=== PATIENT | male | born 1960 | race Caucasian/White ===

== ENCOUNTER 2016-10-15 00:35 | Emergency (ER) | payer MEDICARE ==
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
[~2016-10-15 00:35] MED LIST: ALLEGRA PO; ASPIRIN81 M1 PO; BP MED X 2; BP MEDICATION; DIOVAN HCT 160/1 TAB PO; DIOVAN320 MG PO; FISH OIL 1,0001 CAP PO; FLAX SEED OIL1000 M1 PO; FLEXERIL10 MG PO; FLONASE16 GM; FOLIC ACID800 MCG PO; GLUCOPHAGE500 MG PO; IBUPROFEN600 MG PO; LASIX20 MG PO; LORTAB 5/500 TA1 TA1 PO; METFORMIN PO; MULTI-VITAMIN1 EAC1 PO; NORVASC PO; POTASSIUM99 M1 PO; SYMBICORT INH; TREXALL10 MG; TYLOX 5/500 CAP1 CAP PO; VALTURNA 300-321 TAB PO; VERAPAMIL HCL80 MG PO; VIT E; XANAX1 MG PO; ZOCOR PO
== END 2016-10-15 01:39 | disposition home or self-care (01) ==
LOC: SED 00:35
DX: S19.9XXA Unspecified injury of neck, initial encounter (principal); J44.9 Chronic obstructive pulmonary disease, unspecified; I27.2 Other secondary pulmonary hypertension; Y04.8XXA Assault by other bodily force, initial encounter
CPT/HCPCS: 70490; 99284

== ENCOUNTER 2017-01-17 14:09 | Emergency (ER) | payer MEDICARE ==
--- NOTE | ~2017-01-17 | CR94 ---
[facility] A Service of [facility] & [facility] RADIOLOGY TEXT RESULTS PATIENT: MIGUELANGEL TAN LOCATION: SED : 58 UNIT #: [id number] AGE: [address]: AURELIA HICKMAN SEX: M ORDER DR: [id number] [place] [id number] E MR#: [id number] Acc #: [id number] NAME: MIGUELANGEL TAN. : 1960 SEX: M STUDY DATE/TIME: 01/17/2017 14:55 UNIT: SED ROOM: STUDY DESCRIPTION: CR Elbow Min 3 Views Rt Attending Physician: Aurelia Hickman Aprn Ordering Physician: Aurelia Hickman Aprn Primary Care Physician: Mark Luna M.D. MEDICAL IMAGING REPORT This report is preliminary unless electronic signature is present. EXAM Right elbow, 3 views, 01/17/2017. HISTORY Right elbow pain and redness beginning last night. No known injury. FINDINGS AP and lateral examination of the elbow shows satisfactory articulation of the humerus with the proximal radius and ulna. There is no identifiable fracture, dislocation, joint effusion, or radiopaque foreign body in the soft tissues. IMPRESSION Normal elbow. Dictated by... Bentley Martinez M.D. THIS IS AN ELECTRONICALLY VERIFIED REPORT Bentley Martinez M.D. at 01/18/2017 2:13 PM JULIETTE/nubia TD: 01/18/2017 00:21 JOB #: [id number] MEDICAL IMAGING REPORT Page 1 of 1
[2017-01-18] MEDS ORDERED: IBUPROFEN800 MG PO (02:31)
[2017-01-18] MEDS ORDERED: HYDROCODON-ACE1 EAC7 PO (02:31)
== END 2017-01-17 16:08 | disposition home or self-care (01) ==
LOC: SED 14:09
DX: L03.113 Cellulitis of right upper limb (principal); E11.9 Type 2 diabetes mellitus without complications; I10 Essential (primary) hypertension; E78.5 Hyperlipidemia, unspecified; Z79.82 Long term (current) use of aspirin; Z79.899 Other long term (current) drug therapy
CPT/HCPCS: 73080; 82947; 96372; 99283

== ENCOUNTER 2017-01-18 02:19 | Emergency (ER) | payer MEDICARE ==
[2017-01-18] MEDS ORDERED: IBUPROFEN800 MG PO (02:31)
[2017-01-18] MEDS ORDERED: HYDROCODON-ACE1 EAC7 PO (02:31)
== END 2017-01-18 03:00 | disposition home or self-care (01) ==
LOC: SED 02:19
DX: M10.9 Gout, unspecified (principal); Z79.899 Other long term (current) drug therapy
CPT/HCPCS: 96372; 99283; J1885